=== PATIENT | male | born 1990 | race Caucasian/White ===

== ENCOUNTER 2017-01-23 13:15 | Emergency (ER) | payer OTHER ==
[~2017-01-23] VITALS: Ht 182.9 cm; Wt 99.8 kg
[~2017-01-23 13:15] MED LIST: ACETAMINOPHEN-1 EAC3 PO; CLONAZEPAM1 M2 PO; ESCITALOPRAM OX10 MG PO; IBUPROFEN800 M1 PO; METHOCARBAMOL500 M1 PO; TRAZODONE HCL100 M1 PO
--- NOTE | 2017-01-23 14:33 | ED UPPER/LOWER EXTREMITY COMPL ---
History of Present Illness General Chief Complaint: Upper Extremity Problem Stated Complaint: LEFT SHOULDER AND ARM PAIN Source: patient Exam Limitations: no limitations Allergies Coded Allergies: Penicillins (08/20/16) Sulfa (Sulfonamide Antibiotics) (08/20/16) Triage Note: TRIAGE: 26 Y/O MALE PRESENTS WITH MOTHER C/O LEFT ARM/ SHOULDER PAIN. REPORTS PAIN 4-6/10 X1.5 WEEKS. WAS INSTRUCTED BY PCP TO BE SEEN IN THE ED TODAY AND REQUEST AN MRI. FINGERTIP SENSATION TO LEFT HAND INTACT. "IT DEPENDS WHICH WAY I TURN MY NECK." Triage Nurses Notes Reviewed? yes HPI: This patient is a 26-year-old male who presents to the emergency department today accompanied by his mother for evaluation of left-sided neck and shoulder pain. 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 He reported that time he started having pain that, at its worse, gets up to a 6 out of 10. It is constant and at its best is at a 3 out of 10. The pain is sharp and radiates down his left arm from his neck. He reported tingling in his arm. He reported that the pain is worse with movement. He has a difficult time raising his arm above his head. The pain keeps the patient up at night. The patient's mother reported that his primary care physician told him to come to the emergency department today for an MRI. The patient has tried using ice packs, warm compresses, and injection that was given to them by the urgent care center, and Robaxin along with ibuprofen without any relief of his symptoms. (MERVIN FONTENOT,ABHISHEK) Vital Signs & Intake/Output Vital Signs & Intake/Output Vital Signs Date Time Temp Pulse Resp B/P B/P Pulse O2 O2 Flow FiO2 Mean Ox Delivery Rate 01/23 1547 98.6 86 18 144/81 97 Room Air 01/23 1318 98.6 76 18 128/78 95 Room Air Room Air ED Intake and Output 01/24 0000 01/23 1200 Intake Total Output Total Balance Patient 220 lb Weight Weight Reported by Patient Measurement Method Reconcile Medications Acetaminophen With Codeine (Acetaminophen-Cod #3 Tablet) 300 MG-30 MG TABLET 1 TAB PO PRN PAIN SCALE 7-10 (SEVERE) (Reported) Clonazepam 1 MG TABLET 1 TAB PO Q6 INSOMNIA (Reported) Cyclobenzaprine HCl 5 MG TABLET 1 TAB PO TIDPRN PRN muscle spasms Escitalopram Oxalate 10 MG TABLET 1 TAB PO DAILY DEPRESSION (Reported) Ibuprofen 800 MG TABLET 1 TAB PO PAIN CONTROL (Reported) Methocarbamol 500 MG TABLET 1 TAB PO QHS MUSCLE SPASMS (Reported) Tramadol HCl 50 MG TABLET 1 TAB PO BIDP PRN pain Trazodone HCl 100 MG TABLET 1 TAB PO QPM SLEEP HELP (Reported) (ALVERTO MORRISSEY,NEFTALI) Past History Travel History Traveled to [place] past 21 day No Medical History Any Pertinent Medical History? see below for history Neurological: NONE EENT: NONE Cardiovascular: NONE Respiratory: NONE Gastrointestinal: NONE Hepatic: NONE Renal: NONE Musculoskeletal: NONE Psychiatric: anxiety, depression, opioid dependence, PTSD Endocrine: NONE Blood Disorders: NONE Cancer(s): NONE BRANCH EXAMINER/Reproductive: NONE History of MRSA: No History of VRE: No History of CDIFF: No Pneumonia Vaccine: 07/30/16 Surgical History Surgical History: non-contributory Psychosocial History Who do you live with Mother Services at Home None What is your primary language Yemeni Tobacco Use: Current Daily Use Daily Tobacco Use Amount/Type: => 5 Cigarettes daily ETOH Use: denies use Illicit Drug Use: denies illicit drug use Family History Family History, If Any: FATHER (Alcoholism). BROTHER (Asthma). Hx Contributory? No (ABHISHEK JEFFRIES PA-C) Review of Systems Review of Systems Constitutional: Reports: no symptoms. EENTM: Reports: no symptoms. Respiratory: Reports: no symptoms. Cardiovascular: Reports: no symptoms. Gastrointestinal/Abdominal: Reports: no symptoms. Musculoskeletal: Reports: see HPI. Skin: Reports: no symptoms. Neurological/Psychological: Reports: no symptoms. All Other Systems: Reviewed and Negative (ABHISHEK JEFFRIES PA-C) Physical Exam Physical Exam General Appearance: well developed/nourished, no apparent distress, alert, awake Comments: Well-developed well-nourished person in no acute distress HEENT: Normal EENT exam, head normocephalic, moist mucous membranes PERRLA bilaterally Neck: Supple, no lymphadenopathy. No midline tenderness. Positive left-sided cervical paraspinal musculature tenderness Back: Normal gait Cardiovascular: Regular rate and rhythm with no murmurs, rubs, or gallops Respiratory: Chest nontender. No respiratory distress. Breath sounds clear to auscultation bilaterally with no wheezes, rales, rhonchi Left upper extremity: No effusions or overlying erythema or ecchymosis to the joint spaces. Range of motion of the shoulder limited to 90 with abduction due to pain. Full range of motion of the elbow and wrist. Tenderness to palpation over the shoulder joint and proximal upper arm. Radial brachial pulses 2+ and strong. Capillary refill less than 2 seconds. Neuro: Alert oriented x3, cranial nerves II through XII grossly intact. 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 5 out of 5 poultry farm supervisor strength in the right upper extremity. Skin: No appreciable rash on exposed skin, skin is warm and dry. Psych: Mood and affect is normal (MERVIN FONTENOT,ABHISHEK) Progress Differential Diagnosis: arterial insufficiency, cellulitis, CHF, compartment syndrome, contusion, DVT, septic arthritis, sprain, tendon injury, rotator cuff tear, cervical disc bulge Plan of Care: Orders Procedure Date/time Status CT UPPER EXT WO IV CONTRAST 01/23 1426 Active Diagnostic Imaging: Viewed by Me: CT Scan. Discussed w/RAD: CT Scan. Radiology Impression: PATIENT: DELMIS GARCIA PRESENT AGE: 26 PATIENT ACCOUNT NO: [id number] : 90 LOCATION: [facility] ORDERING PHYSICIAN: ABHISHEK JEFFRIES PA-C SERVICE DATE: 01/23/17 EXAM TYPE: CAT - CT CERV SPINE WO IV CONTRAST EXAMINATION: CT CERVICAL SPINE WITHOUT CONTRAST CLINICAL INFORMATION: Left arm weakness, tingling and pain. COMPARISON: None. TECHNIQUE: Multiple axial CT images of the cervical spine were obtained without intravenous contrast. 2-D coronal and sagittal reformatted images were obtained at the acquisition workstation. DLP: 307 mGy-cm FINDINGS: No acute fracture or subluxation of the cervical spine. Vertebral body heights and intervertebral disc spaces appear grossly preserved. The craniocervical joint and atlantoaxial articulations are intact. There is reversal of the normal lordotic curvature of the cervical spine. This finding is nonspecific but may be secondary to patient neck positioning within the CT gantry. There is no significant neuroforaminal narrowing or spinal canal stenosis. No posterior disc protrusions are identified. The bilateral lung apices are clear. The thyroid gland appears unremarkable. IMPRESSION: No acute cervical spine fracture or subluxation. No significant neuroforaminal narrowing or spinal canal stenosis. DICTATED BY: ALEX WALKER MD DATE/TIME DICTATED:01/23/171541 CHEMICAL DEPENDENCY PROFESSIONAL:SHAREE DATE/TIME TRANSCRIBED:01/23/171541 CONFIDENTIAL, DO NOT COPY WITHOUT APPROPRIATE AUTHORIZATION. <Electronically signed in Other Vendor System> SIGNED BY: ALEX WALKER MD 01/23/17 1549, PATIENT: DELMIS GARCIA PRESENT AGE: 26 PATIENT ACCOUNT NO: [id number] : 90 LOCATION: [facility] ORDERING PHYSICIAN: ABHISHEK JEFFRIES PA-C SERVICE DATE: 01/23/17 EXAM TYPE: CAT - CT UPPER EXT WO IV CONTRAST EXAMINATION: CT UPPER EXTREMITY WITHOUT CONTRAST, LEFT CLINICAL INFORMATION: Left upper extremity pain. Evaluate for fracture from the left shoulder to the left elbow. COMPARISON: None. TECHNIQUE: Multiple axial CT images of the left upper extremity were obtained without intravenous contrast, from the left shoulder to the left elbow. Portions of the left elbow, notably the lateral epicondyle were excluded from the [id number]. DLP: 1155 mGy-cm FINDINGS: No appreciable fracture of the left humerus from the left shoulder to the left elbow. However, please note that portions of the lateral epicondyle are excluded from the [id number]. No cortical destruction or significant periosteal reaction is identified. There is no acute fracture or dislocation of the left shoulder. The left acromioclavicular joint is intact. The imaged left-sided ribs appear unremarkable. 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 IMPRESSION: No acute fracture or dislocation of the left upper extremity from the left shoulder to the left elbow. However, please note that the lateral epicondyle of the left elbow is excluded from the [id number]. If clinical concern for elbow fracture persists, consider correlation with plain films of the left elbow. No acute fracture or dislocation of the left shoulder. 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 DICTATED BY: ALEX WALKER MD DATE/TIME DICTATED:01/23/171545 CHEMICAL DEPENDENCY PROFESSIONAL:SHAREE DATE/TIME TRANSCRIBED:01/23/171545 CONFIDENTIAL, DO NOT COPY WITHOUT APPROPRIATE AUTHORIZATION. <Electronically signed in Other Vendor System> SIGNED BY: ALEX WALKER MD 01/23/17 1625 (ABHISHEK JEFFRIES PA-C) Departure Departure Disposition: HOME OR SELF CARE Condition: Stable Clinical Impression Primary Impression: Weakness of upper extremity Referrals: NATHANAEL MORRISSEY,GALILEO Castro (PCP/Family) ANGELO MORRISSEY,LISET ALBERTS MD,KENZIE Godoy Additional Instructions: Please follow-up with your primary care physician for authorization for an MRI. You may also follow-up with the orthopedic physician whose information has been provided to you in this packet. You have also been provided with the name and number of a neurosurgeon for any follow-up that you may need. Departure Forms: Customer Survey General Discharge Information Prescriptions: Current Visit Scripts Cyclobenzaprine HCl 1 TAB PO TIDPRN PRN muscle spasms #15 TAB Tramadol HCl 1 TAB PO BIDP PRN pain #10 TAB (ABHISHEK JEFFRIES PA-C) PA/CREATIVE PRODUCER Co-Sign Statement Statement: ED Attending supervision documentation- I saw and evaluated the patient. I have also reviewed all the pertinent lab results and diagnostic results. I agree with the findings and the plan of care as documented in the PA's/CREATIVE PRODUCER's documentation. x I have reviewed the ED Record and agree with the PA's/CREATIVE PRODUCER's documentation. [] Additions or exceptions (if any) to the PAs/CREATIVE PRODUCER's note and plan are summarized below: [] (ALVERTO MORRISSEY,NEFTALI)
[2017-01-23 15:47] VITALS: BP 144/81
--- NOTE | 2017-01-23 15:49 | CT SCAN REPORT ---
EXAMINATION: CT CERVICAL SPINE WITHOUT CONTRAST CLINICAL INFORMATION: Left arm weakness, tingling and pain. COMPARISON: None. TECHNIQUE: Multiple axial CT images of the cervical spine were obtained without intravenous contrast. 2-D coronal and sagittal reformatted images were obtained at the acquisition workstation. DLP: 307 mGy-cm FINDINGS: No acute fracture or subluxation of the cervical spine. Vertebral body heights and intervertebral disc spaces appear grossly preserved. The craniocervical joint and atlantoaxial articulations are intact. There is reversal of the normal lordotic curvature of the cervical spine. This finding is nonspecific but may be secondary to patient neck positioning within the CT gantry. There is no significant neuroforaminal narrowing or spinal canal stenosis. No posterior disc protrusions are identified. The bilateral lung apices are clear. The thyroid gland appears unremarkable. IMPRESSION: No acute cervical spine fracture or subluxation. No significant neuroforaminal narrowing or spinal canal stenosis.
--- NOTE | 2017-01-23 16:25 | CT SCAN REPORT ---
EXAMINATION: CT UPPER EXTREMITY WITHOUT CONTRAST, LEFT CLINICAL INFORMATION: Left upper extremity pain. Evaluate for fracture from the left shoulder to the left elbow. COMPARISON: None. TECHNIQUE: Multiple axial CT images of the left upper extremity were obtained without intravenous contrast, from the left shoulder to the left elbow. Portions of the left elbow, notably the lateral epicondyle were excluded from the [id number]. DLP: 1155 mGy-cm FINDINGS: No appreciable fracture of the left humerus from the left shoulder to the left elbow. However, please note that portions of the lateral epicondyle are excluded from the [id number]. No cortical destruction or significant periosteal reaction is identified. There is no acute fracture or dislocation of the left shoulder. The left acromioclavicular joint is intact. The imaged left-sided ribs appear unremarkable. 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 IMPRESSION: No acute fracture or dislocation of the left upper extremity from the left shoulder to the left elbow. However, please note that the lateral epicondyle of the left elbow is excluded from the [id number]. If clinical concern for elbow fracture persists, consider correlation with plain films of the left elbow. No acute fracture or dislocation of the left shoulder. 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
[2017-01-23] MEDS ORDERED: CYCLOBENZAPRINE5 M2 PO (16:48)
[2017-01-23] MEDS ORDERED: TRAMADOL HCL50 M1 PO (16:48)
== END 2017-01-23 16:52 ==
LOC: ERH 13:15
DX: R53.1 Weakness (principal)